=== PATIENT | female | born 1985 | race American Indian/Alaskan Native ===

== ENCOUNTER 2017-09-12 02:02 | Inpatient (IN) | payer OTHER ==
[2017-09-12] MEDS ORDERED: PROVENTIL IH ONE (04:00)
[2017-09-12] MEDS ORDERED: TYLENOL PO ONE (04:11)
[2017-09-12 04:56] LABS: BUN/Creatinine Ratio 10; Blood Urea Nitrogen 6 mg/dL (7-17); Calcium 8.7 mg/dL (8.4-10.2); Hemolysis Index 1
[2017-09-12 05:04] LABS: Basophils % (Auto) 0.3 % (0.0-1.8); Eosinophils # (Auto) 0.2 K/mm3 (0.0-0.4); Eosinophils % (Auto) 1.2 % (0.0-4.3); Lymphocytes # (Auto) 2.3 K/mm3 (1.2-5.4); Lymphocytes % (Auto) 16.6 % (13.4-35.0); Mean Corpuscular HGB Conc 29 % (30-34); Monocytes # (Auto) 0.8 K/mm3 (0.0-0.8); Monocytes % (Auto) 5.9 % (0.0-7.3); Platelet Count 485 K/mm3 (140-440); Red Blood Count 3.92 M/mm3 (3.65-5.03); Red Cell Distribution Width 19.4 % (13.2-15.2)
[2017-09-12 05:06] LABS: Hematocrit 23.6 % (30.3-42.9); Hemoglobin 6.8 gm/dl (10.1-14.3); Mean Corpuscular Hemoglobin 18 pg (28-32); Mean Corpuscular Volume 60 fl (79-97)
[2017-09-12] MEDS ORDERED: NACL 0.9% 500 ML 500 ML IV ONE (09:20)
--- NOTE | 2017-09-12 09:23 | Emergency Department Report ---
Chief Complaint: Dyspnea/Respdistress Stated Complaint: CHEST PAIN,ASTHMA Time Seen by Provider: 09/12/17 09:12 - HPI History of Present Illness: 32-year-old female presents to the emergency department with a 2-3 day history of some left-sided chest pains, feeling cold and tired. She has a history of asthma. She is a nonsmoker and denies any illicit drug use. No family history of early cardiac disease that she knows of. She tried some ibuprofen for her symptoms without much relief. No recent travel or sick contacts at home. She does not follow up with a primary care physician. - ROS Review of Systems: Positive for chest pain, intermittent shortness of breath, fatigue, feeling cold /chills Negative for nausea, vomiting, dysuria, vaginal bleeding or discharge - Exam Vital Signs: Vital Signs 09/12/17 09/12/17 03:48 09:00 Temperature 100.7 F H Pulse Rate 113 H Respiratory 18 17 Rate Blood Pressure 121/68 O2 Sat by Pulse 98 Oximetry Physical Exam: Patient is awake and alert and does not appear in any acute distress. Normal sounding heart and lungs to auscultation. MSE screening note: Focused history and physical exam performed. Due to findings the following was ordered: Patient has been here since about 4 in the morning. I reviewed her labs and it shows a hemoglobin of 6.8 that appears to be microcytic. Compared to her previous visit, she does appear to have a history of anemia but this is about 3 g less. This very well may be the source of her symptoms. She also had a fever upon presentation and there could be a concurrent viral infection. Chest x-ray was evaluated and does not appear to show any signs of pneumonia or any other acute process. I have ordered for a type and screen, 2 units of packed red blood cells to be transfused, a repeat troponin level and the patient will most likely be seen on the Main ED side. ED Medical Decision Making - Lab Data Result diagrams: 09/12/17 04:30 09/12/17 04:30 ED Disposition for MSE Condition: Stable Referrals: PRIMARY CARE, [Primary Care Provider] - 3-5 Days
[2017-09-12] MEDS ORDERED: ROBITUSSIN AC PO ONE (11:20)
--- NOTE | 2017-09-12 12:18 | Emergency Department Report ---
ED Chest Pain HPI - General Chief Complaint: Dyspnea/Respdistress Stated Complaint: CHEST PAIN,ASTHMA Time Seen by Provider: 09/12/17 09:12 Source: patient Mode of arrival: Ambulatory Limitations: No Limitations - History of Present Illness Initial Comments: Patient is 32 years old female with no significant past medical history except for a DVT when she was . Patient presented to the ER complaining of left-sided chest pain and shortness of breath for the last 4 days. Patient was found to have a hemoglobin of 6.8. Patient denied any rectal bleeding or melena. 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 Patient reported that she noticed weight loss over the last 4 months or so and also decreased appetite. MD Complaint: chest pain -: days(s) Pain Location: left chest Severity scale (0 -10): 1 Quality: tightness, heaviness - Related Data Previous Rx's Medication Instructions Recorded Last Taken Type Cyclobenzaprine HCl [Flexeril] 10 mg PO Q4-6H PRN #14 tablet 05/25/13 Unknown Rx HYDROcodone/APAP 5-325 [[place] 1 each PO Q6HR PRN #14 tablet 05/25/13 Unknown Rx 5-325 mg TAB] Ibuprofen [Motrin] 800 mg PO TID PRN #20 tablet 05/25/13 Unknown Rx HYDROcodone/APAP 5-325 [[place] 1 each PO Q6HR PRN #12 tablet 03/14/14 Unknown Rx 5/325] Hydrocortisone 2.5% [Hytone 2.5% 1 applicatio TP TID #15 gm 03/14/14 Unknown Rx CREAM] Sulfamethoxazole/Trimethoprim 1 each PO Q12H #14 tablet 03/14/14 Unknown Rx [Bactrim Ds] Allergies Allergy/AdvReac Type Severity Reaction Status Date / Time WALNUTS Allergy Swelling Uncoded 05/25/13 14:22 Heart Score - HEART Score History: Slightly suspicious EKG: Non-specific Age: < 45 Risk factors: No known risk factors Troponin: < normal limit HEART Score: 1 - Critical Actions Critical Actions: 0-3 pts:0.9-1.7%risk of adverse cardiac event.Candidate for discharge ED Review of Systems ROS: Stated complaint: CHEST PAIN,ASTHMA Other details as noted in HPI Comment: All other systems reviewed and negative Constitutional: fever. denies: chills Respiratory: cough, shortness of breath. denies: orthopnea Cardiovascular: chest pain, palpitations Gastrointestinal: denies: abdominal pain, nausea, vomiting, diarrhea, constipation, hematemesis, melena, hematochezia Genitourinary: denies: urgency, dysuria, frequency, hematuria, discharge Neurological: denies: headache, weakness, numbness, paresthesias, confusion, abnormal gait ED Past Medical Hx - Past Medical History Hx Asthma: Yes Additional medical history: Eczema - Surgical History Past Surgical History?: No - Social History Smoking Status: Never Smoker Substance Use Type: None - Medications Home Medications: Home Medications Medication Instructions Recorded Confirmed Last Taken Type Cyclobenzaprine HCl [Flexeril] 10 mg PO Q4-6H PRN #14 tablet 05/25/13 Unknown Rx HYDROcodone/APAP 5-325 [[place] 1 each PO Q6HR PRN #14 tablet 05/25/13 Unknown Rx 5-325 mg TAB] Ibuprofen [Motrin] 800 mg PO TID PRN #20 tablet 05/25/13 Unknown Rx HYDROcodone/APAP 5-325 [[place] 1 each PO Q6HR PRN #12 tablet 03/14/14 Unknown Rx 5/325] Hydrocortisone 2.5% [Hytone 2.5% 1 applicatio TP TID #15 gm 03/14/14 Unknown Rx CREAM] Sulfamethoxazole/Trimethoprim 1 each PO Q12H #14 tablet 03/14/14 Unknown Rx [Bactrim Ds] ED Physical Exam - General Limitations: No Limitations General appearance: alert, in no apparent distress - Head Head exam: Present: atraumatic, normocephalic, normal inspection - ENT ENT exam: Present: normal exam, normal orophraynx, mucous membranes moist - Neck Neck exam: Present: normal inspection, full ROM. Absent: tenderness, meningismus, lymphadenopathy, thyromegaly - Respiratory Respiratory exam: Present: decreased breath sounds (left lower lobe). Absent: respiratory distress, wheezes, rales, rhonchi, stridor - Cardiovascular Cardiovascular Exam: Present: tachycardia - GI/Abdominal GI/Abdominal exam: Present: soft, normal bowel sounds. Absent: distended, tenderness, guarding, rebound, rigid, organomegaly, mass, bruit, pulsatile mass , hernia - Extremities Exam Extremities exam: Present: normal inspection, full ROM, normal capillary refill. Absent: tenderness, pedal edema, joint swelling, calf tenderness - Back Exam Back exam: Present: normal inspection, full ROM. Absent: tenderness, CVA tenderness (R), CVA tenderness (L), muscle spasm, paraspinal tenderness, vertebral tenderness, rash noted - Neurological Exam Neurological exam: Present: alert, oriented X3, CN II-XII intact, normal gait, reflexes normal - Skin Skin exam: Present: warm, intact, normal color ED Course Vital Signs 09/12/17 09/12/17 09/12/17 03:48 09:00 10:55 Temperature 100.7 F H 98.9 F Pulse Rate 113 H 80 Respiratory 18 17 16 Rate Blood Pressure 121/68 Blood Pressure 120/67 [Left] O2 Sat by Pulse 98 100 Oximetry ED Medical Decision Making - Lab Data Result diagrams: 09/12/17 04:30 09/12/17 04:30 - EKG Data -: EKG Interpreted by Pa EKG shows normal: sinus rhythm Rate: tachycardia - EKG Data Interpretation: no acute changes - Radiology Data Radiology results: report reviewed Referring Physician: VIVIANA MARINA Patient Name: EMILI ARANGO Date of : 1985 Sex: Female Report Date: 2017-09-12 Report Status: [place] [address] Cat Scan Report Signed Patient: EMILI ARANGO MR#: [id number] : 1985 Acct:[id number] Age/Sex: 32 / F ADM Date: 09/12/17 Loc: ED Attending Dr: Ordering Physician: VIVIANA MARINA Date of Service: 09/12/17 Procedure(s): CT angio chest Accession Number(s): [id number] cc: VIVIANA MARINA CTA CHEST: HISTORY: Chest pain, shortness of breath, history of DVT. COMPARISON: Chest x-ray performed the same day. TECHNIQUE: Helical CT in 1.25mm intervals following IV contrast. Pulmonary embolus protocol. Sagittal and coronal reformatted images. Rotational MIP images. FINDINGS: Contrast bolus is satisfactory. There is a large occlusive pulmonary embolus extending from the distal left main pulmonary artery throughout the arterial structures to the left lower lobe. No convincing emboli to the left upper lobe and right lung are identified Thyroid gland: There is a complex, heterogeneous nodule in the right thyroid lobe measuring up to 5 cm. Tracheobronchial tree: Normal. Esophagus: Normal. Heart: Normal. Pericardium: Normal. Mediastinum: Normal. Lung Palumbo: There is patchy infiltration in the left lower lobe which is likely related to the large pulmonary embolus. The remainder of the lungs are clear. No underlying parenchymal lung disease is appreciated. Pleural Spaces: Moderate layering left pleural effusion measuring up to 2.5 cm in thickness. Musculoskeletal: Normal. IMPRESSION: Positive for pulmonary embolus in the left lower lobe. Moderate left pleural effusion. Complex right thyroid lobe nodule as described. Consider dedicated thyroid ultrasound. These findings were discussed with Dr. Marina in the emergency department at 1302 hrs. Transcribed By: TTR Dictated By: KAVON OLMSTEAD JR, MD Electronically Authenticated By: KAVON OLMSTEAD JR, MD Signed Date/Time: 09/12/17 1304 DD/ 1300 TD/TT: 09/12/17 1304 - Medical Decision Making I discussed the patient was Dr. Briceno, he agreed to admit the patient to his service. Critical Care Time: Yes Critical care time in (mins) excluding proc time.: 30 Critical care attestation.: If time is entered above; I have spent that time in minutes in the direct care of this critically ill patient, excluding procedure time. ED Disposition Clinical Impression: Pulmonary embolism, Shortness of breath, Anemia Disposition: OP ADMIT IP TO THIS HOSP Is pt being admited?: Yes Condition: Stable Referrals: PRIMARY CARE, [Primary Care Provider] - 3-5 Days
--- NOTE | 2017-09-12 13:14 | Cat Scan Report ---
CTA CHEST: HISTORY: Chest pain, shortness of breath, history of DVT. COMPARISON: Chest x-ray performed the same day. TECHNIQUE: Helical CT in 1.25mm intervals following IV contrast. Pulmonary embolus protocol. Sagittal and coronal reformatted images. Rotational MIP images. FINDINGS: Contrast bolus is satisfactory. There is a large occlusive pulmonary embolus extending from the distal left main pulmonary artery throughout the arterial structures to the left lower lobe. No convincing emboli to the left upper lobe and right lung are identified Thyroid gland: There is a complex, heterogeneous nodule in the right thyroid lobe measuring up to 5 cm. Tracheobronchial tree: Normal. Esophagus: Normal. Heart: Normal. Pericardium: Normal. Mediastinum: Normal. Lung Palumbo: There is patchy infiltration in the left lower lobe which is likely related to the large pulmonary embolus. The remainder of the lungs are clear. No underlying parenchymal lung disease is appreciated. Pleural Spaces: Moderate layering left pleural effusion measuring up to 2.5 cm in thickness. Musculoskeletal: Normal. IMPRESSION: Positive for pulmonary embolus in the left lower lobe. Moderate left pleural effusion. Complex right thyroid lobe nodule as described. Consider dedicated thyroid ultrasound. These findings were discussed with Dr. Cope in the emergency department at 1302 hrs.
[2017-09-12] MEDS ORDERED: NACL 0.9% 250ML 250 ML ONE (13:28)
--- NOTE | 2017-09-12 15:31 | History and Physical Report ---
History of Present Illness Chief complaint: It hurts on my left side when i breathe History of present illness: 32 YO Female with Asthma, Eczema, Gestational DVT presents to ED for evaluation. Pt states that she has experienced shortness of breath, and left sided chest pain with deep breathing over the past 4 days with persistent symptoms over the same time frame. Pt denies fever, chills, palpitations, NVD, Syncope, hemoptysis, unintentional weight loss, night sweats, unilateral leg swelling, calf pain, productive cough, BRBPR, or recent ill contacts. Pt seen and evaluated in ED and found to have Left Lowe Lobe Pneumonia, Left Pulmonary Embolism, as well as symptomatic anemia. Pt underwent stat Echo which did not reveal Right heart strain, as well and lack of evidence of right heart strain on EKG. Vascular surgery service consulted in ED. Pt admitted to telemetry and started on therapeutic anticoagulation after hypercoagulable workup lab tests completed. Past History Past Medical History: other (asthma, eczema, gestational DVT) Past Surgical History: No surgical history, Other (reviewed) Social history: single. denies: smoking, alcohol abuse, prescription drug abuse Medications and Allergies Allergies Allergy/AdvReac Type Severity Reaction Status Date / Time WALNUTS Allergy Swelling Uncoded 05/25/13 14:22 Home Medications Medication Instructions Recorded Confirmed Last Taken Type Cyclobenzaprine HCl [Flexeril] 10 mg PO Q4-6H PRN #14 tablet 05/25/13 Unknown Rx HYDROcodone/APAP 5-325 [[place] 1 each PO Q6HR PRN #14 tablet 05/25/13 Unknown Rx 5-325 mg TAB] Ibuprofen [Motrin] 800 mg PO TID PRN #20 tablet 05/25/13 Unknown Rx HYDROcodone/APAP 5-325 [[place] 1 each PO Q6HR PRN #12 tablet 03/14/14 Unknown Rx 5/325] Hydrocortisone 2.5% [Hytone 2.5% 1 applicatio TP TID #15 gm 03/14/14 Unknown Rx CREAM] Sulfamethoxazole/Trimethoprim 1 each PO Q12H #14 tablet 03/14/14 Unknown Rx [Bactrim Ds] Active Meds: Active Medications Piperacillin Sod/Tazobactam Sod (Zosyn/Ns 3.375gm/50ml) 3.375 gm in 50 mls @ 100 mls/hr IV Q6HR [facility] Review of Systems Constitutional: no weight loss, no weight gain, no fever, no chills Ears, nose, mouth and throat: no ear pain, no ear discharge, no tinnitis, no decreased hearing, no nose pain, no nasal congestion Breasts: no change in shape, no swelling, no mass Cardiovascular: no chest pain, no orthopnea, no palpitations, no edema, no syncope, no lightheadedness Respiratory: shortness of breath, pleurisy, no cough, no cough with sputum, no congestion, no snoring, no sleep apnea Gastrointestinal: no nausea, no vomiting, no diarrhea, no constipation Genitourinary Female: no pelvic pain, no flank pain, no menorrhagia, no dysuria , no urinary frequency, no urgency Rectal: no pain, no incontinence, no bleeding Musculoskeletal: no neck pain, no shooting arm pain, no arm numbness/tingling, no low back pain, no shooting leg pain Integumentary: no rash, no pruritis, no redness, no sores, no wounds Neurological: no head injury, no transient paralysis, no paralysis, no weakness , no parathesias, no numbness, no tingling Psychiatric: no anxiety, no memory loss, no change in sleep habits, no sleep disturbances, no insomnia, no hypersomnia, no change in appetite Endocrine: no cold intolerance, no heat intolerance, no polyphagia, no excessive thirst, no polydipsia, no polyuria, no nocturia Hematologic/Lymphatic: no easy bruising, no easy bleeding, no lymphadenopathy, no lymphedema Allergic/Immunologic: no urticaria, no allergic rhinitis, no wheezing, no persistent infections, no anaphylaxis Exam - Constitutional Vitals: Temp Pulse Resp BP Pulse Ox 99 F 89 25 H 132/72 100 09/12/17 14:09 09/12/17 15:10 09/12/17 15:10 09/12/17 15:10 09/12/17 15:10 General appearance: Present: mild distress - EENT Eyes: Present: PERRL ENT: hearing intact, clear oral mucosa - Neck Neck: Present: supple, normal ROM - Respiratory Respiratory effort: normal Respiratory: right: CTA, left: diminished, rhonchi - Cardiovascular Heart Sounds: Present: S1 & S2. Absent: rub, click - Extremities Extremities: pulses symmetrical, No edema Peripheral Pulses: within normal limits - Abdominal General gastrointestinal: Present: soft, non-tender, non-distended, normal bowel sounds Female genitourinary: Present: normal - Integumentary Integumentary: Present: clear, warm, dry - Musculoskeletal Musculoskeletal: gait normal, strength equal bilaterally - Psychiatric Psychiatric: appropriate mood/affect, intact judgment & insight - Neurologic Neurologic: CNII-XII intact, moves all extremities Results - Labs CBC & Chem 7: 09/12/17 04:30 09/12/17 04:30 Labs: Abnormal lab results 09/12/17 09/12/17 09/12/17 Range/Units 04:30 04:30 09:39 WBC 13.7 H (4.5-11.0) K/mm3 Hgb 6.8 L (10.1-14.3) gm/dl Hct 23.6 L (30.3-42.9) % MCV 60 L (79-97) fl MCH 18 L (28-32) pg MCHC 29 L (30-34) % RDW 19.4 H (13.2-15.2) % Plt Count 485 H (140-440) K/mm3 Seg Neutrophils % 76.0 H (40.0-70.0) % Seg Neutrophils # 10.4 H (1.8-7.7) K/mm3 BUN 6 L (7-17) mg/dL Creatinine 0.6 L (0.7-1.2) mg/dL Glucose 205 H (65-100) mg/dL Crossmatch See Detail Assessment and Plan - Patient Problems (1) Pneumonia Current Visit: Yes Status: Acute Qualifiers: Laterality: left Lung location: lower lobe of lung Plan to address problem: IV antibiotics, blood cultures, Chest X ray, nebulizer therapy, supplemental oxygen, pulse oximetry (2) Anemia Current Visit: Yes Status: Acute Plan to address problem: PRBC transfusion, serial CBC, (3) Pulmonary embolism Current Visit: Yes Status: Acute Qualifiers: Chronicity: acute Plan to address problem: Therapeutic anticoagulation, hypercoagulable workup prior to anticoagulation, IR consulted, Stat Echo, (4) DVT prophylaxis Current Visit: Yes Status: Acute Plan to address problem: SCD to BLE
--- NOTE | 2017-09-12 15:32 | Consultation ---
History of Present Illness - Reason for Consult Consult date: 09/12/17 PE Requesting physician: RANDY VALDEZ - History of Present Illness 32-year-old female presents to the emergency department with a 1 month history of SOB and chest pain which worsened over the last week. She has a history of asthma. She is a nonsmoker and denies any illicit drug use. Has a known right thyroid nodule and has eczema of her hands. Denies any recent travel history or immobilization. Denies recent trauma. Denies oral contraceptive use. Denies plan B use. Has history of anemia with significant anemia upon presentation requiring blood transfusion. She is actively receiving blood. History of fibroids, but reports no significant bleeding with 5 days of menses and 3 pads per day. Denies hematemesis or hematochezia. Hemodynamically stable. No right-sided heart straight on CT. No hypoxia. Some shortness of breath and chest pain with exertion. ProBNP and troponin negative. Past History Past Medical History: other (asthma, thyroid nodules, eczema) Past Surgical History: No surgical history Social history: denies: smoking, alcohol abuse Family history: no significant family history Medications and Allergies Allergies Allergy/AdvReac Type Severity Reaction Status Date / Time WALNUTS Allergy Swelling Uncoded 05/25/13 14:22 Home Medications Medication Instructions Recorded Confirmed Last Taken Type Cyclobenzaprine HCl [Flexeril] 10 mg PO Q4-6H PRN #14 tablet 05/25/13 Unknown Rx HYDROcodone/APAP 5-325 [[place] 1 each PO Q6HR PRN #14 tablet 05/25/13 Unknown Rx 5-325 mg TAB] Ibuprofen [Motrin] 800 mg PO TID PRN #20 tablet 05/25/13 Unknown Rx HYDROcodone/APAP 5-325 [[place] 1 each PO Q6HR PRN #12 tablet 03/14/14 Unknown Rx 5/325] Hydrocortisone 2.5% [Hytone 2.5% 1 applicatio TP TID #15 gm 03/14/14 Unknown Rx CREAM] Sulfamethoxazole/Trimethoprim 1 each PO Q12H #14 tablet 03/14/14 Unknown Rx [Bactrim Ds] Active Meds: Active Medications Piperacillin Sod/Tazobactam Sod (Zosyn/Ns 3.375gm/50ml) 3.375 gm in 50 mls @ 100 mls/hr IV Q6HR [place] Review of Systems All systems: negative (see HPI) Exam - Constitutional Vitals: Temp Pulse Resp BP Pulse Ox 99 F 89 25 H 132/72 100 09/12/17 14:09 09/12/17 15:10 09/12/17 15:10 09/12/17 15:10 09/12/17 15:10 General appearance: Present: no acute distress - EENT Eyes: Present: EOM intact ENT: hearing intact - Respiratory Respiratory effort: normal, other (report some left-sided chest pain) - Extremities Extremities: normal temperature, normal color - Abdominal General gastrointestinal: Present: soft - Psychiatric Psychiatric: appropriate mood/affect, cooperative Results - Labs CBC & Chem 7: 09/12/17 04:30 09/12/17 04:30 Labs: Abnormal lab results 09/12/17 09/12/17 09/12/17 Range/Units 04:30 04:30 09:39 WBC 13.7 H (4.5-11.0) K/mm3 Hgb 6.8 L (10.1-14.3) gm/dl Hct 23.6 L (30.3-42.9) % MCV 60 L (79-97) fl MCH 18 L (28-32) pg MCHC 29 L (30-34) % RDW 19.4 H (13.2-15.2) % Plt Count 485 H (140-440) K/mm3 Seg Neutrophils % 76.0 H (40.0-70.0) % Seg Neutrophils # 10.4 H (1.8-7.7) K/mm3 BUN 6 L (7-17) mg/dL Creatinine 0.6 L (0.7-1.2) mg/dL Glucose 205 H (65-100) mg/dL Crossmatch See Detail - Imaging and Cardiology CT scan - chest: report reviewed, image reviewed Venous US: image reviewed Assessment and Plan 32-year-old female who presents with pulmonary embolism and left-sided shortness of breath and chest pain. No right-sided heart strain on CT. ProBNP and troponin negative. Has signs of left-sided lung infarct which may be responsible for pain. No need for thrombolytic therapy. Recommend anticoagulation with Coumadin or NOAC. DVT ultrasound performed due to bilateral lower extremity pain with PE which was negative. Unclear cause of pulmonary embolism as patient has no history of recent travel, trauma, immobilization, oral contraceptive use/hypercoagulability. Patient will require a hematology oncology evaluation for hypercoagulable workup. In addition, patient has anemia requiring transfusion with history of fibroids, but no significant menorrhagia. May benefit from a hematology evaluation for anemia as well. Length of time of anticoagulation is unclear since this is a spontaneous thromboembolic episode without a provocative cause. Spontaneous thromboembolic events usually results in anticoagulation for life, but the patient is very young. Recommend duration of anticoagulation be based upon hematology hypercoagulability workup.
[2017-09-12] MEDS ORDERED: MORPHINE IV ONE (15:50)
[2017-09-12] MEDS ORDERED: ZOFRAN IV ONE (15:51)
[2017-09-12] MEDS ORDERED: FLEXERIL PO PRN (16:00)
[2017-09-12] MEDS ORDERED: PROVENTIL IH PRN (16:03)
[2017-09-12] MEDS ORDERED: SODIUM CHLORIDE FLUSH SYRINGE 10 ML IV PRN (16:03)
[2017-09-12] MEDS ORDERED: ZOFRAN IV PRN (16:03)
[2017-09-12] MEDS ORDERED: TYLENOL PO PRN (16:03)
[2017-09-12] MEDS: ZOSYN/NS 3.375GM/50ML 3.375 GM/50 ML BAG IV SCH ×2 (16:24→18:15)
[2017-09-12] MEDS: ELIQUIS PO SCH ×2 (18:00→22:00)
[2017-09-12] MEDS: NORCO 5/325 PO PRN (19:05)
[2017-09-12] MEDS: HYTONE CR TP SCH (20:00)
[2017-09-12] MEDS: SODIUM CHLORIDE FLUSH SYRINGE 10 ML IV SCH (22:00)
[2017-09-13] MEDS: NORCO 5/325 PO PRN ×2 (00:55→19:34)
[2017-09-13] MEDS: ROBITUSSIN PO PRN ×2 (00:56→21:29)
[2017-09-13] MEDS: ZOSYN/NS 3.375GM/50ML 3.375 GM/50 ML BAG IV SCH ×4 (00:56→19:34)
--- NOTE | 2017-09-13 10:12 | Progress Note ---
Assessment and Plan Assessment and plan: Acute pulmonary embolism. Patient with no evidence of right heart strain. Continue anticoagulation. Dr. Stewart feels patient has no need for thrombolytic therapy. Lower extremity ultrasound was negative. Etiology is unknown given no history of recent travel, trauma, immobilization, oral contraceptive use/ hypercoagulability. Hematology/oncology evaluation for hypercoagulable state. We will treat with Coumadin given the patient's lack of insurance. Anemia. Hematology evaluation pending. Follow-up serial CBC. Patient with 2 units PRBCs ordered. Check iron studies, B12, folate, reticulocyte count and LDH. Hemoccult stools 2 Left-sided pulmonary infarct. I doubt the patient has left lower lobe pneumonia. Leukocytosis is likely stress-induced. Continue empiric antibiotics for now but likely DC the next 24-48 hrs if no evidence of infection. Pleurisy. Add Toradol. History Interval history: Patient reports hemoptysis this morning. Patient still complains of pleuritic chest pain. Hospitalist Physical - Constitutional Vitals: Temp Pulse Resp BP Pulse Ox 99.2 F 87 18 125/57 100 09/13/17 08:08 09/13/17 08:08 09/13/17 08:08 09/13/17 08:08 09/13/17 08:08 General appearance: Present: no acute distress - EENT Eyes: Present: PERRL, EOM intact ENT: hearing intact, clear oral mucosa, dentition normal - Neck Neck: Present: supple, normal ROM - Respiratory Respiratory effort: normal Respiratory: bilateral: CTA - Cardiovascular Rhythm: regular Heart Sounds: Present: S1 & S2. Absent: gallop, rub - Extremities Extremities: no ischemia, No edema, Full ROM - Abdominal General gastrointestinal: soft, non-tender, non-distended, normal bowel sounds - Integumentary Integumentary: Present: clear, warm, dry - Neurologic Neurologic: CNII-XII intact, moves all extremities Results - Labs CBC & Chem 7: 09/12/17 04:30 09/12/17 04:30 Labs: Laboratory Last Values WBC 13.7 K/mm3 (4.5-11.0) H 09/12/17 04:30 RBC 3.92 M/mm3 (3.65-5.03) 09/12/17 04:30 Hgb 6.8 gm/dl (10.1-14.3) L 09/12/17 04:30 Hct 23.6 % (30.3-42.9) L 09/12/17 04:30 MCV 60 fl (79-97) L 09/12/17 04:30 MCH 18 pg (28-32) L 09/12/17 04:30 MCHC 29 % (30-34) L 09/12/17 04:30 RDW 19.4 % (13.2-15.2) H 09/12/17 04:30 Plt Count 485 K/mm3 (140-440) H 09/12/17 04:30 Lymph % (Auto) 16.6 % (13.4-35.0) 09/12/17 04:30 [place] % (Auto) 5.9 % (0.0-7.3) 09/12/17 04:30 Eos % (Auto) 1.2 % (0.0-4.3) 09/12/17 04:30 Baso % (Auto) 0.3 % (0.0-1.8) 09/12/17 04:30 Lymph # 2.3 K/mm3 (1.2-5.4) 09/12/17 04:30 [place] # 0.8 K/mm3 (0.0-0.8) 09/12/17 04:30 Eos # 0.2 K/mm3 (0.0-0.4) 09/12/17 04:30 Baso # 0.0 K/mm3 (0.0-0.1) 09/12/17 04:30 Seg Neutrophils % 76.0 % (40.0-70.0) H 09/12/17 04:30 Seg Neutrophils # 10.4 K/mm3 (1.8-7.7) H 09/12/17 04:30 Percent Retic 1.25 % (0.78-2.58) 09/12/17 04:30 Sodium 137 mmol/L (137-145) 09/12/17 04:30 Potassium 3.7 mmol/L (3.6-5.0) 09/12/17 04:30 Chloride 100.7 mmol/L (98-107) 09/12/17 04:30 Carbon Dioxide 23 mmol/L (22-30) 09/12/17 04:30 Anion Gap 17 mmol/L 09/12/17 04:30 BUN 6 mg/dL (7-17) L 09/12/17 04:30 Creatinine 0.6 mg/dL (0.7-1.2) L 09/12/17 04:30 Estimated GFR > 60 ml/min 09/12/17 04:30 BUN/Creatinine Ratio 10 % 09/12/17 04:30 Glucose 205 mg/dL (65-100) H 09/12/17 04:30 Calcium 8.7 mg/dL (8.4-10.2) 09/12/17 04:30 Troponin T < 0.010 ng/mL (0.00-0.029) 09/12/17 09:37 NT-Pro-B Natriuret Pep 64.98 pg/mL (0-450) 09/12/17 09:37 HCG, Qual Negative (Negative) 09/12/17 04:30 Blood Type B POSITIVE 09/12/17 09:39 Antibody Screen Negative 09/12/17 09:39 Crossmatch See Detail 09/12/17 09:39
[2017-09-13] MEDS: MOTRIN PO PRN (12:28)
[2017-09-13] MEDS: SODIUM CHLORIDE FLUSH SYRINGE 10 ML IV SCH ×2 (12:29→21:29)
[2017-09-13] MEDS: ELIQUIS PO SCH ×2 (12:30→21:29)
[2017-09-13 12:53] LABS: Iron 20 ug/dL (37-170); Total Iron Binding Capacity 307 mcg/dL (250-450)
--- NOTE | 2017-09-13 14:29 | XRay Report ---
FINAL REPORT EXAM: XR CHEST ROUTINE 2V HISTORY: Shortness of breath TECHNIQUE: PA and lateral chest radiographs PRIORS: None. FINDINGS: No mediastinal shift. Cardiac silhouette is not enlarged. No pneumothorax. There is blunting of the left costophrenic angle. Consolidative lingular and left lower lung airspace disease. No acute skeletal finding. IMPRESSION: Consolidative lingular and left lower lung airspace disease. PA and lateral chest radiographic follow-up to resolution is recommended.
--- NOTE | 2017-09-13 20:54 | Consultation ---
History of Present Illness - Reason for Consult Consult date: 09/13/17 anemia. Requesting physician: SERGIO COLLINS - History of Present Illness Thank you for this consult, patient seen/ examined, record reviewed.She got 2units of PRBC yesterday, no follow up labs. Patient is known with hx of fibroid tumor, and was advised of surgery, but no insurance.Please see orders for w/up.She will need iron/folate supplements upon d/c. Past History Past Medical History: other (asthma, eczema, gestational DVT) Past Surgical History: No surgical history, Other (reviewed) Social history: single. denies: smoking, alcohol abuse, prescription drug abuse Family history: no significant family history Medications and Allergies Allergies Allergy/AdvReac Type Severity Reaction Status Date / Time WALNUTS Allergy Swelling Uncoded 05/25/13 14:22 Home Medications Medication Instructions Recorded Confirmed Last Taken Type Cyclobenzaprine HCl [Flexeril] 10 mg PO Q4-6H PRN #14 tablet 05/25/13 09/13/17 09/12/17 10:00 Rx HYDROcodone/APAP 5-325 [[place] 1 each PO Q6HR PRN #14 tablet 05/25/13 09/13/17 10:00 Rx 5-325 mg TAB] Ibuprofen [Motrin] 800 mg PO TID PRN #20 tablet 05/25/13 09/13/17 09/10/17 10: 00 Rx HYDROcodone/APAP 5-325 [[place] 1 each PO Q6HR PRN #12 tablet 03/14/14 09/13/17 10:00 Rx 5/325] Hydrocortisone 2.5% [Hytone 2.5% 1 applicatio TP TID #15 gm 03/14/14 09/13/17 Unknown Rx CREAM] Sulfamethoxazole/Trimethoprim 1 each PO Q12H #14 tablet 03/14/14 09/13/17 Unknown Rx [Bactrim Ds] Active Meds: Active Medications Acetaminophen (Tylenol) 650 mg PO Q4H PRN PRN Reason: Pain MILD(1-3)/Fever >100.5/RUELAS Acetaminophen/Hydrocodone Bitart ([place] 5/325) 1 each PO Q6HR PRN PRN Reason: Pain, Moderate (4-6) Last Admin: 09/13/17 19:34 Dose: 1 each Albuterol (Proventil) 2.5 mg IH Q4HRT PRN PRN Reason: Shortness Of Breath Apixaban (Eliquis) 10 mg PO Q12HR [facility]; Protocol Last Admin: 09/13/17 12:30 Dose: 10 mg Cyclobenzaprine HCl (Flexeril) 10 mg PO Q4H PRN PRN Reason: Pain Guaifenesin (Robitussin) 200 mg PO Q4H PRN PRN Reason: Cough Last Admin: 09/13/17 00:56 Dose: 200 mg Hydrocortisone Acetate (Hytone Cr) 1 applic TP TID [facility] Last Admin: 09/12/17 20:00 Dose: Not Given Piperacillin Sod/Tazobactam Sod (Zosyn/Ns 3.375gm/50ml) 3.375 gm in 50 mls @ 100 mls/hr IV Q6HR [facility] Last Admin: 09/13/17 19:34 Dose: 100 mls/hr Ibuprofen (Motrin) 800 mg PO TID PRN PRN Reason: Pain Last Admin: 09/13/17 12:28 Dose: 800 mg Ondansetron HCl (Zofran) 4 mg IV Q8H PRN PRN Reason: Nausea And Vomiting Sodium Chloride (Sodium Chloride Flush Syringe 10 Ml) 10 ml IV BID [facility] Last Admin: 09/13/17 12:29 Dose: 10 ml Sodium Chloride (Sodium Chloride Flush Syringe 10 Ml) 10 ml IV PRN PRN PRN Reason: LINE FLUSH Review of Systems Constitutional: fatigue Breasts: deferred Exam - Constitutional Vitals: Temp Pulse Resp BP Pulse Ox 98.4 F 87 20 112/58 97 09/13/17 19:39 09/13/17 19:39 09/13/17 19:39 09/13/17 19:39 09/13/17 19:39 General appearance: Present: no acute distress, well-nourished - EENT Eyes: Present: PERRL ENT: hearing intact, clear oral mucosa - Neck Neck: Present: supple, normal ROM - Respiratory Respiratory effort: normal Respiratory: bilateral: CTA - Cardiovascular Heart Sounds: Present: S1 & S2. Absent: rub, click - Extremities Extremities: pulses symmetrical, No edema Peripheral Pulses: within normal limits - Abdominal General gastrointestinal: Present: soft, non-tender, non-distended, normal bowel sounds Female genitourinary: Present: deferred - Rectal Rectal Exam: deferred - Integumentary Integumentary: Present: clear, warm, dry, rash - Musculoskeletal Musculoskeletal: gait normal, strength equal bilaterally - Psychiatric Psychiatric: appropriate mood/affect, intact judgment & insight - Neurologic Neurologic: CNII-XII intact, moves all extremities Results - Labs CBC & Chem 7: 09/12/17 04:30 09/12/17 04:30 Labs: Abnormal lab results 09/13/17 09/13/17 Range/Units 11:00 11:00 Iron 20 L (37-170) ug/dL Lactate Dehydrogenase 231 H (91-180) units/L Folate 5.85 L (7.3-26.0) ng/mL Assessment and Plan - Patient Problems (1) Anemia Current Visit: Yes Status: Acute Plan to address problem: see notes. (2) Shortness of breath Current Visit: Yes Status: Acute Plan to address problem: due to anemia.
[2017-09-13 22:43] LABS: Hematocrit 28.4 % (30.3-42.9); Hemoglobin 8.6 gm/dl (10.1-14.3); Mean Corpuscular HGB Conc 30 % (30-34); Platelet Count 470 K/mm3 (140-440); Red Blood Count 4.28 M/mm3 (3.65-5.03)
[2017-09-13 22:44] LABS: Mean Corpuscular Hemoglobin 20 pg (28-32); Mean Corpuscular Volume 66 fl (79-97); Red Cell Distribution Width 25.6 % (13.2-15.2)
[2017-09-14 00:13] LABS: Band Neutrophils # (Manual) 0.1 K/mm3; Basophils % (Manual) 0 % (0.0-1.8); Total Cells Counted 100
[2017-09-14 00:14] LABS: Anisocytosis 2+; Hypochromasia 2+; Platelet Estimate Appears Increased
[2017-09-14] MEDS: HYTONE CR TP SCH ×2 (00:31→09:01)
[2017-09-14] MEDS: ZOSYN/NS 3.375GM/50ML 3.375 GM/50 ML BAG IV SCH ×2 (00:32→05:37)
[2017-09-14 08:47] LABS: BUN/Creatinine Ratio 12; Blood Urea Nitrogen 6 mg/dL (7-17); Calcium 8.4 mg/dL (8.4-10.2); Hemolysis Index 0
[2017-09-14 08:55] LABS: Hematocrit 29.5 % (30.3-42.9); Hemoglobin 8.6 gm/dl (10.1-14.3); Mean Corpuscular HGB Conc 29 % (30-34); Mean Corpuscular Hemoglobin 20 pg (28-32); Mean Corpuscular Volume 67 fl (79-97); Platelet Count 528 K/mm3 (140-440); Red Blood Count 4.41 M/mm3 (3.65-5.03); Red Cell Distribution Width 25.5 % (13.2-15.2)
[2017-09-14] MEDS: ROBITUSSIN PO PRN (08:59)
[2017-09-14] MEDS: SODIUM CHLORIDE FLUSH SYRINGE 10 ML IV SCH (09:44)
[2017-09-14] MEDS: ELIQUIS PO SCH (09:44)
[2017-09-14] MEDS: MOTRIN PO PRN (09:48)
[2017-09-14 10:27] LABS: Anisocytosis 2+; Basophils % (Manual) 0 % (0.0-1.8); Hypochromasia 2+; Platelet Estimate Consistent w Auto; Total Cells Counted 100
--- NOTE | 2017-09-14 12:26 | Discharge Summary ---
Providers - Providers Date of Admission: 09/12/17 16:03 Date of discharge: 09/14/17 Attending physician: SAMANTHA LYONS 09/12/17 13:19 Consult to Interventional Radiology [CONS] Routine Consulting Provider: FABIO KINGSLEY Reason For Exam: pulmonary embolism Place consult to:: [facility] Notified:: Y Was contact made?: Yes If yes, spoke with:: Meir LOZANO Time called:: 14:00 Comment:: DR TAMIKO BETANCUR 09/13/17 10:12 Consult to Physician [CONS] Routine Comment: Consulting Provider: BUSHRA METZGER Physician Instructions: Reason For Exam: anemia Primary care physician: [employer] Hospitalization Condition: Fair Disposition: DC-01 TO HOME OR SELFCARE Core Measure Documentation - Palliative Care Palliative Care/ Comfort Measures: Not Applicable - Core Measures Any of the following diagnoses?: DVT/PE - VTE Discharge Requirements Deep Vein Thrombosis/Pulmonary Embolism Present on Admission: Yes Has pt received <5 days of overlap therapy or INR<2.0: Yes Anticoagulant overlap therapy prescribed at discharge: No Contraindication No Overlap Therapy order at DC: Not Indicated (Discharged home on Eliquis) Exam - Constitutional Vitals: Temp Pulse Resp BP Pulse Ox 99.9 F H 87 16 118/55 97 09/14/17 07:23 09/14/17 10:38 09/14/17 07:23 09/14/17 07:23 09/14/17 07:23 Plan Activity: advance as tolerated Diet: low fat, low cholesterol Additional Instructions: 1.Follow up with PCP or [facility] in 1 week. 2.Follow up with Dr. Metzger in 1 week. 3.Take Eliquis as directed by Physician Follow up with: PRIMARY CARE, [Primary Care Provider] - 3-5 Days
[2017-09-14 13:15] VITALS: BP 105/47
--- NOTE | 2017-09-14 17:59 | Vascular Lab Report ---
LOWER EXTREMITY VENOUS DUPLEX: REASON FOR EXAM: Short of breath and pulmonary embolism. COMMENTS ON THE RIGHT: All veins visualized are freely compressible without evidence of internal echogenicity. Flow is spontaneous and phasic throughout. COMMENTS ON THE LEFT: All veins visualized are freely compressible without evidence of internal echogenicity. Flow is spontaneous and phasic throughout. IMPRESSION: No evidence of acute or chronic deep venous thrombosis in either lower extremity.
[2017-09-15 13:28] LABS: Protein S, Free 112 % normal (50-147); Protein S, Total 107 % (70-140)
== END 2017-09-14 15:59 | disposition home or self-care (01) | DRG 175 ==
LOC: ED 02:02 → 4A 16:03
PROVIDERS: ADMIT Internal Medicine; ATTEND Internal Medicine
PROC: 30233N1 Transfusion of Nonautologous Red Blood Cells into Peripheral Vein, Percutaneous Approach (ICD-10-PCS; principal; 2017-09-12)
DX: I26.99 Other pulmonary embolism without acute cor pulmonale (principal); J96.90 Respiratory failure, unspecified, unspecified whether with hypoxia or hypercapnia; J18.9 Pneumonia, unspecified organism; D64.9 Anemia, unspecified; D72.829 Elevated white blood cell count, unspecified; Z79.899 Other long term (current) drug therapy; Z86.718 Personal history of other venous thrombosis and embolism
CPT/HCPCS: 36415; 71046; 71275; 80048; 82607; 82728; 82747; 83550; 83615; 83880; 84484; 84703; 85007; 85025; 85045; 85220; 85301; 85305; 85307; 86850; 86900; 86901; 86920; 87040; 93005; 93010; 93306; 93970; 96374; 96375; A6250; J2270; J2405; J2543; J7050; P9016; Q9967

== ENCOUNTER 2019-08-26 21:07 | Emergency (ER) | payer SELFPAY ==
[2019-08-26 21:19] VITALS: BP 134/68
[2019-08-26 22:05] LABS: Bilirubin,Urine NEG (Negative); Blood,Urine NEG (Negative); Color,Urine Yellow (Yellow); Mucus,Urine 1+ /HPF; Protein,Urine <15 mg/dL mg/dL (Negative); Urobilinogen,Urine < 2.0 mg/dL (<2.0)
--- NOTE | 2019-08-26 23:32 | Emergency Department Report ---
ED Female HPI - General Chief complaint: Abdominal Pain Stated complaint: CRAMPING Time Seen by Provider: 08/26/19 23:28 Source: patient Mode of arrival: Ambulatory Limitations: No Limitations - History of Present Illness Initial comments: 34-year-old -Burm[place] female in no acute distress nontoxic in appearance presents to the emergency room complaining of abdominal cramping and lower back pain that has continued for 2 days after her period ended. Last menstrual period was 08/17/2019. Patient reports she has been taking ibuprofen and aspirin with no relief. Patient reports that she has a history of fibroids. Patient denies any bleeding denies any dysuria no nausea no vomiting no shortness of breath or chest pain. 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 Patient is 1 para 0. MD Complaint: pelvic pain Onset/Timin -: days(s) Location: suprapubic Radiation: non-radiating Severity scale (0 -10): 9 Quality: sharp, crushing Consistency: intermittent Improves with: none Worsens with: none Are you Now?: No Last Menstrual Period: 08/17/19 EDC: 05/23/20 Associated Symptoms: denies: abdominal pain, nausea/vomiting, fever/chills, hea daches, loss of appetite, dysuria, hematuria - Related Data : 1 Para: 0 Previous Rx's Medication Instructions Recorded Last Taken Type Cyclobenzaprine HCl [Flexeril] 10 mg PO Q4-6H PRN #14 tablet 05/25/13 09/12/17 10:00 Rx HYDROcodone/APAP 5-325 [[place] 1 each PO Q6HR PRN #14 tablet 05/25/13 09/12/17 10:00 Rx 5-325 mg TAB] Ibuprofen [Motrin 800 MG tab] 800 mg PO TID PRN #20 tablet 05/25/13 09/10/17 10:00 Rx HYDROcodone/APAP 5-325 [[place] 1 each PO Q6HR PRN #12 tablet 03/14/14 09/12/17 10:00 Rx 5-325 mg TAB] Hydrocortisone 2.5% [Hytone 2.5% 1 applicatio TP TID #15 gm 03/14/14 Unknown Rx CREAM] Apixaban [Eliquis] 5 mg PO BID #60 tablet 09/14/17 Unknown Rx Apixaban [Eliquis] 10 mg PO BID 4 Days tablet 09/14/17 Unknown Rx levoFLOXacin [Levaquin TAB] 500 mg PO QDAY #5 tablet 09/14/17 Unknown Rx traMADoL [Ultram 50 MG tab] 50 mg PO Q6HR PRN #12 tablet 08/26/19 Unknown Rx Allergies Allergy/AdvReac Type Severity Reaction Status Date / Time WALNUTS Allergy Swelling Uncoded 05/25/13 14:22 ED Review of Systems ROS: Stated complaint: CRAMPING Other details as noted in HPI Comment: All other systems reviewed and negative ED Past Medical Hx - Past Medical History Hx Congestive Heart Failure: No Hx Diabetes: No Hx Asthma: Yes Hx COPD: No Additional medical history: Eczema - Social History Smoking Status: Never Smoker Substance Use Type: None - Medications Home Medications: Home Medications Medication Instructions Recorded Confirmed Last Taken Type Cyclobenzaprine HCl [Flexeril] 10 mg PO Q4-6H PRN #14 tablet 05/25/13 09/13/17 09/12/17 10:00 Rx HYDROcodone/APAP 5-325 [[place] 1 each PO Q6HR PRN #14 tablet 05/25/13 09/13/17 09/12/17 10:00 Rx 5-325 mg TAB] Ibuprofen [Motrin 800 MG tab] 800 mg PO TID PRN #20 tablet 05/25/13 09/13/17 09/10/17 10:00 Rx HYDROcodone/APAP 5-325 [[place] 1 each PO Q6HR PRN #12 tablet 03/14/14 09/13/17 09/12/17 10:00 Rx 5-325 mg TAB] Hydrocortisone 2.5% [Hytone 2.5% 1 applicatio TP TID #15 gm 03/14/14 09/13/17 Unknown Rx CREAM] Apixaban [Eliquis] 5 mg PO BID #60 tablet 09/14/17 Unknown Rx Apixaban [Eliquis] 10 mg PO BID 4 Days tablet 09/14/17 Unknown Rx levoFLOXacin [Levaquin TAB] 500 mg PO QDAY #5 tablet 09/14/17 Unknown Rx traMADoL [Ultram 50 MG tab] 50 mg PO Q6HR PRN #12 tablet 08/26/19 Unknown Rx ED Physical Exam - General Limitations: No Limitations General appearance: alert, in no apparent distress - Head Head exam: Present: atraumatic, normocephalic - Eye Eye exam: Present: normal appearance - ENT ENT exam: Present: mucous membranes moist - Neck Neck exam: Present: normal inspection, full ROM - GI/Abdominal GI/Abdominal exam: Present: soft, tenderness (Pelvic), normal bowel sounds. Absent: distended, guarding, rebound, rigid - Extremities Exam Extremities exam: Present: normal inspection, full ROM - Back Exam Back exam: Present: normal inspection, full ROM - Neurological Exam Neurological exam: Present: alert, oriented X3 ED Course Vital Signs 08/26/19 21:11 Temperature 98.8 F Pulse Rate 68 Respiratory 18 Rate Blood Pressure 134/68 O2 Sat by Pulse 100 Oximetry ED Medical Decision Making - Medical Decision Making 34-year-old -Burmese female in no acute distress nontoxic in appearance presents to the emergency room complaining of abdominal cramping and lower back pain that has continued for 2 days after her period ended. Last menstrual period was 08/17/2019. Patient reports she has been taking ibuprofen and aspirin with no relief. Patient reports that she has a history of fibroids. Patient denies any bleeding denies any dysuria no nausea no vomiting no shortness of breath or chest pain. 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 Patient is 1 para 0. Patient vital signs are stable will give tramadol p.o. now and discharge tramadol for 3 days instructed patient to follow-up with her HEAT SET OPERATOR will place referral for patient's convenience. Critical care attestation.: If time is entered above; I have spent that time in minutes in the direct care of this critically ill patient, excluding procedure time. ED Disposition Clinical Impression: Pelvic pain, History of uterine fibroid Disposition: DC-01 TO HOME OR SELFCARE Is pt being admited?: No Does the pt Need Aspirin: No Condition: Stable Instructions: Abdominal Pain (ED) Additional Instructions: Take pain medication as needed use warm hot compresses to your abdomen or heating pack. Take pain medication as prescribed. Follow-up with HEAT SET OPERATOR. Prescriptions: traMADoL [Ultram 50 MG tab] 50 mg PO Q6HR PRN #12 tablet PRN Reason: Pain Referrals: PRIMARY CARE, [Primary Care Provider] - 3-5 Days [facility] [Provider Group] - 3-5 Days [facility] [Provider Group] - 3-5 Days
[2019-08-26] MEDS ORDERED: traMADol 50 MG TAB PO ONE (23:36)
== END 2019-08-26 23:48 | disposition home or self-care (01) ==
LOC: ED 21:07
DX: D25.9 Leiomyoma of uterus, unspecified (principal); M54.89 Other dorsalgia
CPT/HCPCS: 36415; 81001; 84703